=== PATIENT | male | born 1940 | race Caucasian/White ===

== ENCOUNTER 2017-07-15 08:20 | Emergency (ER) | payer BC, MEDICARE ==
[~2017-07-15 08:20] MED LIST: ACIP20TA19 PO; ADVA100A INH; CORE3.12 OR; COUM5TAB PO; LASI20TA PO; LEVO75TA42 PO; LIPI20TA OR
--- NOTE | 2017-07-16 08:18 | EP ---
cc: SALAS DARBY M.D. CHIEF COMPLAINT: Left shoulder rash. HISTORY OF PRESENT ILLNESS: The patient presents with complaints of a rash that started on his left shoulder approximately three days ago. He denies any increased stressors or trauma. Denies any chest pain, shortness of breath, urinary or bowel symptoms. Denies any nausea or vomiting, diarrhea or fever. No previous shingles vaccine. PAST MEDICAL HISTORY: 1. Coronary artery disease with stent placement. 2. Prostate cancer with radiation. 3. COPD. 4. Gastroesophageal reflux disease (GERD). 5. Atrial fibrillation. 6. Heart failure. SOCIAL HISTORY: Positive for alcohol. Denies tobacco; quit 20 years ago. PAST SURGICAL HISTORY: 1. Stent placement. 2. Prostate radiation. FAMILY HISTORY: Unknown. CURRENT MEDICATIONS: 1. Advair. 2. Aspirin 81 milligrams. 3. Coumadin 5 milligrams. 4. Xopenex. 5. Levothyroxine 75 milligrams. 6. Potassium chloride. 7. Lasix 20 milligrams p.o. daily. 8. Proton pump inhibitor unknown for reflux. ALLERGIES: NO KNOWN DRUG ALLERGIES. REVIEW OF SYSTEMS: Negative with the exception of rash left shoulder. PHYSICAL EXAMINATION: CARDIOVASCULAR: Regular rate and rhythm. LUNGS: Respirations clear to auscultation bilaterally. ABDOMEN: Nontender and nondistended. Positive bowel sounds. EXTREMITIES: Warm to touch. Pulses palpable. No edema noted. Examination of the left shoulder, left neck and left anterior upper chest reveal herpetic lesions in a C3-C4 dermatome without cellulitic change, drainage or discharge. LABORATORY STUDIES: No labs obtained. ASSESSMENT: Shingles, C3 and C44 dermatomes. PLAN: Antiviral, pain medication, Neurontin as directed and follow up with ophthalmology, follow up with primary care physician, and return to the emergency room with any new symptoms. Salas Darby M.D. TOOTIE/DESHAUN /9:07 AM /8:15 AM
== END 2017-07-15 09:50 | disposition home or self-care (01) ==
LOC: PHED 08:39
DX: B02.9 Zoster without complications (principal); I25.10 Atherosclerotic heart disease of native coronary artery without angina pectoris; J44.9 Chronic obstructive pulmonary disease, unspecified; K21.9 Gastro-esophageal reflux disease without esophagitis; I48.91 Unspecified atrial fibrillation; I50.9 Heart failure, unspecified; Z95.5 Presence of coronary angioplasty implant and graft; Z87.891 Personal history of nicotine dependence
CPT/HCPCS: 99283